=== PATIENT | male | born 1995 | race Caucasian/White ===

== ENCOUNTER 2018-03-25 18:32 | Emergency (ER) | payer OTHER ==
[~2018-03-25] VITALS: Ht 198.1 cm; Wt 71.7 kg
[2018-03-25 19:29] VITALS: BP 126/75
== END 2018-03-25 19:29 | disposition home or self-care (01) ==
LOC: M.ERS 18:32
DX: S61.210A Laceration without foreign body of right index finger without damage to nail, initial encounter (principal); W26.0XXA Contact with knife, initial encounter; Y92.89 Other specified places as the place of occurrence of the external cause; Y93.89 Activity, other specified; Y99.8 Other external cause status

== ENCOUNTER 2018-09-10 14:17 | Emergency (ER) | payer OTHER ==
[~2018-09-10] VITALS: Ht 198.1 cm; Wt 77.1 kg
[2018-09-10] MEDS ORDERED: SCHIZOPHRENIA MED (14:26)
[2018-09-10 15:06] LABS: ABSOLUTE EOSINOPHILS 0.1 thou/uL (0.0-0.7); ABSOLUTE LYMPHOCYTES 1.3 thou/uL (0.8-5.3); ABSOLUTE MONOCYTES 0.6 thou/uL (0.0-1.2); ABSOLUTE NEUTROPHILS 5.8 thou/uL (1.6-8.1); BASOPHILS 0.6 %; EOSINOPHILS 1.2 %; HEMATOCRIT 41.5 % (42.0-52.0); HEMOGLOBIN 14.3 gm/dL (14.0-18.0); LYMPHOCYTES 16.9 %; MCH 31.6 pg (26.0-34.0); MCHC 34.6 g/dL (28.0-37.0); MCV 91.5 fL (80.0-100.0); MONOCYTES 8.2 %; MPV 7.8 fl. (7.2-11.1); NUCLEATED RBCS 0 /100WBC; PLATELET COUNT* 170 thou/uL (150-400); POLYS 73.1 %; RBC 4.54 mil/uL (4.50-6.00); RDW-CV 13.8 % (10.5-14.5); WBC 7.9 thou/uL (4.0-11.0)
[2018-09-10 15:19] LABS: ALBUMIN 4.3 g/dL (3.4-5.0); CALCIUM 9.4 mg/dL (8.5-10.1); TOTAL BILIRUBIN 0.3 mg/dL (<0.1-1.0); TOTAL PROTEIN 7.4 g/dL (6.4-8.2)
[2018-09-10 16:12] VITALS: BP 135/77
== END 2018-09-10 16:13 | disposition home or self-care (01) ==
LOC: M.ERS 14:17
PROVIDERS: Nurse Practitioner Family
DX: G24.01 Drug induced subacute dyskinesia (principal); F20.9 Schizophrenia, unspecified